=== PATIENT | male | born 1965 | race American Indian/Alaskan Native ===

== ENCOUNTER 2021-02-04 15:56 | Emergency (ER) | payer OTHER, SELFPAY ==
[2021-02-04 19:47] VITALS: BP 108/76
[2021-02-04] MEDS ORDERED: SODIUM CHLORIDE 0.9% 1000 ML 1,000 ML IV ONE (20:15)
[2021-02-04] MEDS ORDERED: dexAMETHasone 20 MG/5 ML VIAL IV ONE (20:16)
[2021-02-04] MEDS ORDERED: AZITHROMYCIN 250 MG TAB PO ONE (20:17)
--- NOTE | 2021-02-04 20:40 | Emergency Department Report ---
ED General Adult HPI - General Chief complaint: Pain General Stated complaint: BODY ACHES Time Seen by Provider: 02/04/21 20:05 Source: patient Mode of arrival: Ambulatory Limitations: No Limitations - History of Present Illness Initial comments: Patient 55-year-old -[place] male who presents for cough weakness loss of taste neurolyse malaise x2 weeks. Patient has not COVID vaccinated. Patient denies chest pain, no dizziness or lightheadedness, no nausea or vomiting. There is been no fever or chills. Patient arrived via POV, patient is amatory, patient denies air hunger at this time. Primary complaint is malaise and weakness. Denies other history except left inguinal hernia repair. - Related Data Home Medications Medication Instructions Recorded Confirmed Last Taken Naproxen Sodium [Aleve] 220 mg PO Q8H PRN 04/15/14 09/03/14 08/31/14 Previous Rx's Medication Instructions Recorded Last Taken Type Acetaminophen/Codeine 1 tab PO Q6H PRN #14 tab 04/16/14 Unknown Rx [Acetaminophen-Codeine #3 TAB] Ibuprofen [Motrin] 800 mg PO Q8H PRN #20 tablet 04/16/14 Unknown Rx Albuterol Mdi (or & Nicu Only) 2 puff IH QID PRN #8.5 gram 02/04/21 Unknown Rx [ProAir HFA Inhaler] Azithromycin 500 mg PO DAILY #5 tablet 02/04/21 Unknown Rx dexAMETHasone [Decadron] 4 mg PO BID 3 Days #6 tablet 02/04/21 Unknown Rx Allergies Allergy/AdvReac Type Severity Reaction Status Date / Time No Known Allergies Allergy Verified 04/15/14 19:37 ED Review of Systems ROS: Stated complaint: BODY ACHES Other details as noted in HPI Constitutional: malaise Eyes: denies: eye pain, eye discharge, vision change ENT: congestion. denies: ear pain, throat pain Respiratory: cough, shortness of breath. denies: wheezing Cardiovascular: denies: chest pain, palpitations Endocrine: no symptoms reported Gastrointestinal: nausea. denies: abdominal pain, vomiting, diarrhea, melena Genitourinary: denies: urgency, dysuria Musculoskeletal: denies: back pain, joint swelling, arthralgia Skin: denies: rash, lesions Neurological: weakness. denies: headache, numbness, paresthesias, vertigo Psychiatric: denies: anxiety, depression Hematological/Lymphatic: denies: easy bleeding, easy bruising ED Past Medical Hx - Past Medical History Previous Medical History?: No Hx Hypertension: No Hx Heart Attack/AMI: No Hx Liver Disease: No Hx Renal Disease: No Hx Seizures: No Hx Asthma: No Hx COPD: No Additional medical history: ? hernia - Surgical History Past Surgical History?: Yes Additional Surgical History: lower back surgery - Social History Smoking Status: Never Smoker Substance Use Type: Alcohol - Medications Home Medications: Home Medications Medication Instructions Recorded Confirmed Last Taken Type Naproxen Sodium [Aleve] 220 mg PO Q8H PRN 04/15/14 09/03/14 08/31/14 History Acetaminophen/Codeine 1 tab PO Q6H PRN #14 tab 04/16/14 09/03/14 Unknown Rx [Acetaminophen-Codeine #3 TAB] Ibuprofen [Motrin] 800 mg PO Q8H PRN #20 tablet 04/16/14 09/03/14 Unknown Rx Albuterol Mdi (or & Nicu Only) 2 puff IH QID PRN #8.5 gram 02/04/21 Unknown Rx [ProAir HFA Inhaler] Azithromycin 500 mg PO DAILY #5 tablet 02/04/21 Unknown Rx dexAMETHasone [Decadron] 4 mg PO BID 3 Days #6 tablet 02/04/21 Unknown Rx ED Physical Exam - General Limitations: No Limitations General appearance: alert, in no apparent distress - Head Head exam: Present: atraumatic, normocephalic - Eye Eye exam: Present: normal appearance, PERRL, EOMI Pupils: Present: normal accommodation - ENT ENT exam: Present: normal orophraynx, mucous membranes moist - Neck Neck exam: Present: normal inspection, full ROM. Absent: tenderness, lymphadenopathy - Respiratory Respiratory exam: Present: normal lung sounds bilaterally, chest wall tenderness. Absent: respiratory distress, wheezes, rales, rhonchi, stridor, decreased breath sounds - Cardiovascular Cardiovascular Exam: Present: regular rate, normal rhythm, normal heart sounds - GI/Abdominal GI/Abdominal exam: Present: soft, normal bowel sounds. Absent: distended, tenderness, bruit, hernia - Rectal Rectal exam: Present: deferred - Extremities Exam Extremities exam: Present: normal inspection, full ROM, normal capillary refill. Absent: tenderness - Back Exam Back exam: Present: normal inspection, full ROM. Absent: CVA tenderness (R), CVA tenderness (L) - Neurological Exam Neurological exam: Present: alert, oriented X3, CN II-XII intact, normal gait - Psychiatric Psychiatric exam: Present: normal affect, normal mood - Skin Skin exam: Present: warm, dry, intact, normal color. Absent: rash ED Course Vital Signs 02/04/21 19:37 Temperature 98.4 F Pulse Rate 87 Respiratory 20 Rate Blood Pressure 108/76 O2 Sat by Pulse 89 Oximetry ED Medical Decision Making - Lab Data Result diagrams: 02/04/21 20:25 02/04/21 20:25 Labs 02/04/21 02/04/21 02/04/21 20:25 20:25 20:25 WBC 6.2 RBC 4.37 Hgb 13.7 Hct 40.1 MCV 92 MCH 31 MCHC 34 RDW 12.8 L Plt Count 182 Lymph % (Auto) 13.5 [place] % (Auto) 15.2 H Eos % (Auto) 0.0 Baso % (Auto) [facility] Lymph # (Auto) 0.8 L [place] # (Auto) 0.9 H Eos # (Auto) 0.0 Baso # (Auto) 0.2 H Seg Neutrophils % 68.5 Seg Neutrophils # 4.3 Sodium 135 L Potassium 5.1 H Chloride 97.9 L Carbon Dioxide 24 Anion Gap 18 BUN 19 Creatinine 0.9 Estimated GFR > 60 BUN/Creatinine Ratio 21 Glucose 106 H Lactic Acid Calcium 9.2 Total Bilirubin 1.40 H AST 204 H ALT 125 H Alkaline Phosphatase 60 Troponin T < 0.010 Total Protein 7.4 Albumin 3.6 L Albumin/Globulin Ratio 0.9 02/04/21 21:08 WBC RBC Hgb Hct MCV MCH MCHC RDW Plt Count Lymph % (Auto) [place] % (Auto) Eos % (Auto) Baso % (Auto) Lymph # (Auto) [place] # (Auto) Eos # (Auto) Baso # (Auto) Seg Neutrophils % Seg Neutrophils # Sodium Potassium Chloride Carbon Dioxide Anion Gap BUN Creatinine Estimated GFR BUN/Creatinine Ratio Glucose Lactic Acid 1.50 Calcium Total Bilirubin AST ALT Alkaline Phosphatase Troponin T Total Protein Albumin Albumin/Globulin Ratio - Radiology Data Radiology results: report reviewed, image reviewed XR chest routine 2V INDICATION / CLINICAL INFORMATION: cough sob. COMPARISON: None available. FINDINGS: SUPPORT DEVICES: None. HEART /PULMONARY VASCULATURE: No significant abnormality. LUNGS / PLEURA: Multifocal patchy airspace opacities present throughout the lungs, most pronounced within the left mid lung and right lung base. No sizable pleural effusion. No pneumothorax. ADDITIONAL FINDINGS: No significant additional findings. IMPRESSION: Bilateral pulmonary airspace opacities, concerning for pneumonia. Signer Name: Sugey Fine MD Signed: 02/04/2021 8:44 PM Workstation Name: [id number] Transcribed By: STEVE Dictated By: SUGEY FINE MD Electronically Authenticated By: SUGEY FINE MD Signed Date/Time: 02/04/212043 DD/ 42 TD/TT: - Medical Decision Making Chest x-ray bilateral opacity, O2 sat is improved after medications given in ED patient is 91% on room air at this time. Rations are even and non labored. Labs noted as above. lactate is normal. Patient offered admission and declined. Patient has the opportunity to ask and I have answered all his questions to his satisfaction and understanding. However patient still wishes to sign out AMA. Patient will sign out with prescriptions however. Patient given strict instructions to return to ED should symptoms worsen. Patient is currently alert oriented x3, patient is ambulatory, lung sounds are clear throughout., Patient is ambulatory with steady gait, mentation is appropriate, patient demonstrates decision-making capacity. Patient left ED AGAINST MEDICAL ADVICE at this time. Critical care attestation.: If time is entered above; I have spent that time in minutes in the direct care of this critically ill patient, excluding procedure time. ED Disposition Clinical Impression: Person under investigation for COVID-19 Disposition: 07 LEFT AGAINST MEDICAL ADVICE Is pt being admited?: No Does the pt Need Aspirin: No Condition: Undetermined Instructions: COVID-19, Prevent the Spread of COVID-19 if You Are Sick - [facility] Additional Instructions: Take all medications as prescribed, return to emergency department should symptoms worsen, follow-up with your doctor in 1 to 2 days as directed. Prescriptions: Azithromycin 500 mg PO DAILY #5 tablet dexAMETHasone [Decadron] 4 mg PO BID 3 Days #6 tablet Albuterol Mdi (or & Nicu Only) [ProAir HFA Inhaler] 2 puff IH QID PRN #8.5 gram PRN Reason: Shortness Of Breath Referrals: PRIMARY CARE, [Primary Care Provider] - 3-5 Days (Call your doctor to set up appointment ) Forms: AMA Form, Work/School Release Form(ED) Time of Disposition: 22:18
--- NOTE | 2021-02-04 20:48 | XRay Report ---
XR chest routine 2V INDICATION / CLINICAL INFORMATION: cough sob. COMPARISON: None available. FINDINGS: SUPPORT DEVICES: None. HEART /PULMONARY VASCULATURE: No significant abnormality. LUNGS / PLEURA: Multifocal patchy airspace opacities present throughout the lungs, most pronounced wi thin the left mid lung and right lung base. No sizable pleural effusion. No pneumothorax. ADDITIONAL FINDINGS: No significant additional findings. IMPRESSION: Bilateral pulmonary airspace opacities, concerning for pneumonia. Signer Name: Toby Mari MD Signed: 02/04/2021 8:44 PM Workstation Name: [id number]
[2021-02-04] MEDS ORDERED: cefTRIAXone/NS 1 GM/50 ML 1 GM/50 ML BAG IV ONE (20:55)
[2021-02-04 21:03] LABS: Alanine Aminotransferase 125 units/L (7-56); Albumin 3.6 g/dL (3.9-5); BUN/Creatinine Ratio 21; Blood Urea Nitrogen 19 mg/dL (9-20); Calcium 9.2 mg/dL (8.4-10.2); Hemolysis Index 77
[2021-02-04 21:22] LABS: Basophils # (Auto) 0.2 K/mm3 (0.0-0.1); Hematocrit 40.1 % (35.5-45.6); Hemoglobin 13.7 gm/dl (11.8-15.2); Lymphocytes # (Auto) 0.8 K/mm3 (1.2-5.4); Lymphocytes % (Auto) 13.5 % (13.4-35.0); Mean Corpuscular HGB Conc 34 % (32-34); Mean Corpuscular Volume 92 fl (84-94); Monocytes # (Auto) 0.9 K/mm3 (0.0-0.8); Monocytes % (Auto) 15.2 % (0.0-7.3); Platelet Count 182 K/mm3 (140-440); Red Blood Count 4.37 M/mm3 (3.65-5.03); Red Cell Distribution Width 12.8 % (13.2-15.2)
== END 2021-02-05 11:27 | disposition left against medical advice (07) ==
LOC: ED 15:56
DX: Z20.822 Contact with and (suspected) exposure to COVID-19 (principal); Z79.899 Other long term (current) drug therapy; Z98.890 Other specified postprocedural states
CPT/HCPCS: 36415; 71046; 80053; 82140; 84484; 85025; 87040; 96361; 96365; 96375; 99284; J0696; J1100; J7030